=== PATIENT | female | born 1985 | race Caucasian/White ===

== ENCOUNTER 2020-05-26 16:15 | Outpatient (CLI) | payer BC | END 2020-05-26 16:16 | disposition home or self-care (01) | LOC: CSHRAD 16:15 | PROVIDERS: ATTEND Family Medicine Sports Medicine | DX: R05 Cough (principal) | CPT/HCPCS: 71046 ==

== ENCOUNTER 2021-01-07 11:44 | Outpatient (CLI) | payer BC | END 2021-01-07 11:45 | disposition home or self-care (01) | LOC: CSHMAMMO 11:44 | PROVIDERS: ATTEND Obstetrics & Gynecology | DX: Z12.31 Encounter for screening mammogram for malignant neoplasm of breast (principal) | CPT/HCPCS: 77063; 77067 ==

== ENCOUNTER 2024-10-09 09:17 | Outpatient (CLI) | payer BC | END 2024-10-09 09:18 | disposition home or self-care (01) | LOC: CSHMAMMO 09:17 | PROVIDERS: ATTEND Nurse Practitioner Family | DX: N64.52 Nipple discharge (principal) | CPT/HCPCS: 77066; G0279 ==

== ENCOUNTER 2024-10-24 09:48 | Outpatient (CLI) | payer BC | END 2024-10-24 09:49 | disposition home or self-care (01) | LOC: CSHMRI 09:48 | PROVIDERS: ATTEND Nurse Practitioner Family | DX: N64.52 Nipple discharge (principal); R92.2 Inconclusive mammogram | CPT/HCPCS: C8908 ==